=== PATIENT | male | born 1955 | race Caucasian/White ===

== ENCOUNTER 2023-12-18 06:35 | Day surgery (SDC) | payer MEDICARE, OTHER ==
[~2023-12-18 06:35] MED LIST: Midazolam 1 MG/ML 2 ML SDV ONE; fentaNYL 100 MCG/2 ML SDV ONE
[2023-12-18] MEDS ORDERED: Midazolam 1 MG/ML 2 ML SDV IV ONE (06:36)
[2023-12-18] MEDS ORDERED: fentaNYL 100 MCG/2 ML SDV IV ONE (06:36)
[2023-12-18] MEDS: Dextrose 5%-0.45% NaCl 1,000 ML IV SCH (07:12)
[2023-12-18] MEDS: fentaNYL 100 MCG/2 ML SDV IV ONE ×2 (07:23→07:24)
[2023-12-18] MEDS: Midazolam 1 MG/ML 2 ML SDV IV ONE ×2 (07:24→07:25)
== END 2023-12-18 09:09 | disposition home or self-care (01) ==
LOC: DL.ENDO 06:35
PROVIDERS: ATTEND Internal Medicine Gastroenterology
DX: K29.50 Unspecified chronic gastritis without bleeding (principal); K20.90 Esophagitis, unspecified without bleeding; K22.70 Barrett's esophagus without dysplasia; E78.5 Hyperlipidemia, unspecified; E11.9 Type 2 diabetes mellitus without complications
CPT/HCPCS: 87077; 88305; J2250; J3010; J7799